=== PATIENT | male | born 1990 | race Caucasian/White ===

== ENCOUNTER 2017-01-06 15:38 | Inpatient (IN) | payer MEDICAID, OTHER ==
[2017-01-06] MEDS ORDERED: Sodium Chloride 0.9% 2.5 ML Syringe FLUSH PRN (16:16)
[2017-01-06] MEDS ORDERED: Sodium Chloride 0.9% 10 ML Syringe FLUSH PRN (16:16)
[2017-01-06] MEDS ORDERED: Sodium Chloride 0.9% 1,000 ML IV ONE (16:18)
[2017-01-06] MEDS ORDERED: Pantoprazole 40 MG Vial IVPUSH ONE (16:18)
[2017-01-06] MEDS ORDERED: Ondansetron 4 MG/2 ML SDV IVPUSH ONE (16:18)
[2017-01-06 16:57] LABS: CHLORIDE,CL 95 mmol/L (98-110); SODIUM,NA 134 mmol/L (136-146)
[2017-01-06] MEDS ORDERED: Morphine 10 MG/ML Syringe IV ONE (17:25)
[2017-01-06] MEDS ORDERED: Iopamidol 755 MG/ML 500 ML Multipack Bottle IVPUSH STA (17:53)
--- NOTE | 2017-01-06 18:05 | EDM.PDOC ---
ED HPI GENERAL MEDICAL PROBLEM - General Chief Complaint: Abdominal Pain Stated Complaint: ABDOMINAL PAIN Time Seen by Provider: 01/06/17 15:58 Source of Information: Reports: Patient History Limitations: Reports: No Limitations - History of Present Illness INITIAL COMMENTS - FREE TEXT/NARRATIVE: HISTORY AND PHYSICAL: []26-year-old male presenting with abdominal pain 3 days. Patient has history of Crohn's disease As had one abdominal surgery related to cuff and large intestine "not for a obstruction" History of Present Illness: []Patient has been sick for the last 3 days unable to have bowel movement, He is now passing some gas calling the chair Review of Systems: As per history of present illness and below otherwise all systems reviewed and negative. Past medical history: As per history of present illness and as reviewed below otherwise noncontributory. Surgical history: As per history of present illness and as reviewed below otherwise noncontributory. Social history: No reported history of drug or alcohol abuse. Family history: As per history of present illness and as reviewed below otherwise noncontributory. Physical exam: Alert oriented gentleman who is in a lot of distress initially. Answering questions appropriately. No shortness breath noted HEENT: Atraumatic, normocehpalic, pupils reactive, negative for conjunctival pallor or scleral icterus, mucous membranes moist, throat clear, neck supple, nontender, trachea midline. Lungs: Clear to auscultation, breath sounds equal bilaterally, chest non tender. Heart: S1S2, regular, negative for clicks, rubs, or JVD. Abdomen: Soft, nondistended,tender. Some guarding is noted .Negative for masses or hepatossplenmegaly. Negative for costovertebral tenderness. Pelvis: Stable nontender. Genitourinary: Deferred. Rectal: Deferred Extremities: Atraumatic, negative for cords or calf pain. Neurovascular unremarkable. Neuro: Awake, alert, oriented. Cranial nerves II through XII unremarkable. Cerebellum unremarkable. Motor and sensory unremarkable throughout. Exam nonfocal. Have discussed this case with Dr. Menendez who is in agreement for patient admission, NG tube to be inserted. Discussed case with Dr. Ho per consult and he will come in and see this patient Diagnostics: [CBC CMP amylase lipase urine urine culture CT abdomen pelvis] Therapeutics: []NG tube/ IV fluids Impression: [Small bowel obstruction] Plan: []Admission to hospital Definitive disposition and diagnosis as appropriate pending reevaluation and review of above. abdomen Pain Score (Numeric/FACES): 9 - Related Data Allergies Allergy/AdvReac Type Severity Reaction Status Date / Time No Known Allergies Allergy Verified 01/06/17 16:06 Home Meds: Home Meds Escitalopram [Lexapro] 20 mg PO DAILY 07/05/13 [History] Mesalamine [Canasa] 1,000 mg RECTAL DAILY 07/05/13 [History] buPROPion HCl [Wellbutrin SR] 150 mg PO DAILY 07/05/13 [History] Past Medical History - Past Health History Medical/Surgical History: Denies Medical/Surgical History Gastrointestinal History: Reports: Other (See Below) Other Gastrointestinal History: ulcerative colitis Social & Family History - Family History Family Medical History: Noncontributory - Tobacco Use Smoking Status *Q: Never Smoker - Recreational Drug Use Recreational Drug Use: No ED ROS GENERAL - Review of Systems Review Of Systems: ROS reveals no pertinent complaints other than HPI. ED EXAM, GI/ABD - Physical Exam Exam: See Below (See dictation) Course - Vital Signs Last Recorded V/S: Last Vital Signs Temp 37.0 C 01/06/17 15:38 Pulse 119 H 01/06/17 15:38 Resp 18 01/06/17 15:38 BP 126/78 01/06/17 15:38 Pulse Ox 96 01/06/17 15:38 - Orders/Labs/Meds Orders: Active Orders 24 hr Category Date Time Status Patient Status [ADT] Stat ADT 01/06/17 18:05 Ordered Notify Provider Consults [RC] ASDIRECTED Care 01/06/17 18:07 Ordered Consult to Physician [CONS] Stat Cons 01/06/17 18:06 Ordered Abdomen Pelvis w Cont [CT] Stat Exams 01/06/17 16:17 Taken Sodium Chloride 0.9% [Saline Flush] Med 01/06/17 16:16 Active 10 ml FLUSH ASDIRECTED PRN Sodium Chloride 0.9% [Saline Flush] Med 01/06/17 16:16 Active 2.5 ml FLUSH ASDIRECTED PRN Nasogastric Orogastric Tube Insertion [OM.PC] Stat Oth 01/06/17 18:00 Ordered Saline Lock Insert [OM.PC] Stat Oth 01/06/17 16:16 Ordered Medication Orders Sodium Chloride (Saline Flush) 10 ml FLUSH ASDIRECTED PRN PRN Reason: Keep Vein Open Last Admin: 01/06/17 17:53 Dose: 10 ml Sodium Chloride (Saline Flush) 2.5 ml FLUSH ASDIRECTED PRN PRN Reason: Keep Vein Open Last Admin: 01/06/17 17:53 Dose: 2.5 ml Labs: Laboratory Tests 01/06/17 01/06/17 01/06/17 Range/Units 16:10 16:25 16:25 WBC 3.29 L (4.0-11.0) K/uL RBC 4.91 (4.50-5.90) M/uL Hgb 14.9 (13.0-17.0) g/dL Hct 44.2 (38.0-50.0) % MCV 90.0 (80.0-98.0) fL MCH 30.3 (27.0-32.0) pg MCHC 33.7 (31.0-37.0) g/dL RDW Std Deviation 44.6 (28.0-62.0) fl RDW Coeff of Richard 14 (11.0-15.0) % Plt Count 255 (150-400) K/uL MPV 9.80 (7.40-12.00) fL Add Manual Diff YES Neutrophils % (Manual) 45 L (48.0-80.0) % Band Neutrophils % 26 % Lymphocytes % (Manual) 20 (16.0-40.0) % Monocytes % (Manual) 4 (0.0-15.0) % Eosinophils % (Manual) 2 (0.0-7.0) % Basophils % (Manual) 1 (0.0-1.5) % Metamyelocytes % 2 % Nucleated RBC % 0.0 /100WBC Absolute Seg Neuts 1.5 Band Neutrophils # 0.9 Lymphocytes # (Manual) 0.7 Monocytes # (Manual) 0.1 Eosinophils # (Manual) 0.1 Basophils # (Manual) 0 Absolute Metamyelocyte 0.1 Nucleated RBCs # 0 K/uL Sodium 134 L (136-146) mmol/L Potassium 3.9 (3.5-5.1) mmol/L Chloride 95 L (98-110) mmol/L Carbon Dioxide 28 (21-31) mmol/L BUN 26 H (6.0-23.0) mg/dL Creatinine 1.2 (0.6-1.5) mg/dL Est Cr Clr Drug Dosing TNP Estimated GFR (MDRD) > 60.0 ml/min Glucose 155 H (60-110) mg/dL Calcium 9.8 (8.8-10.8) mg/dL Total Bilirubin 0.6 (0.1-1.5) mg/dL AST 21 (5-40) IU/L ALT 18 (8-54) IU/L Alkaline Phosphatase 82 (40-150) Total Protein 8.0 (6.0-8.0) g/dL Albumin 4.3 (3.5-5.0) g/dL Globulin 3.7 H (2.0-3.5) g/dL Albumin/Globulin Ratio 1.2 L (1.3-2.8) Amylase 28 (10-90) U/L Lipase < 9 (7-80) U/L Urine Color DARK YELLOW Urine Appearance CLEAR Urine pH 5.5 (5.0-8.0) Ur Specific Trinity >= 1.030 (1.001-1.035) Urine Protein 30 (NEGATIVE) mg/dL Urine Glucose (UA) NEGATIVE (NEGATIVE) mg/dL Urine Ketones TRACE H (NEGATIVE) mg/dL Urine Occult Blood NEGATIVE (NEGATIVE) Urine Nitrite NEGATIVE (NEGATIVE) Urine Bilirubin MODERATE H (NEGATIVE) Urine Ictotest NEGATIVE Urine Urobilinogen 1.0 (<2.0) EU/dL Ur Leukocyte Esterase NEGATIVE (NEGATIVE) Urine RBC 1-2 (0-2/HPF) Urine WBC 0-1 (0-5/HPF) Ur Epithelial Cells RARE (NONE-FEW) Urine Bacteria FEW (NEGATIVE) Hyaline Casts 5-10 (0-2/LPF) Urine Mucus HEAVY (NONE-MOD) Meds: Medications Generic Name Dose Route Start Last Admin Trade Name Freq PRN Reason Stop Dose Admin Sodium Chloride 10 ml 01/06/17 16:16 01/06/17 17:53 Saline Flush FLUSH 10 ml ASDIRECTED PRN Administration Keep Vein Open Sodium Chloride 2.5 ml 01/06/17 16:16 01/06/17 17:53 Saline Flush FLUSH 2.5 ml ASDIRECTED PRN Administration Keep Vein Open Discontinued Medications Generic Name Dose Route Start Last Admin Trade Name Freq PRN Reason Stop Dose Admin Sodium Chloride 1,000 mls @ 999 mls/hr 01/06/17 16:18 01/06/17 17:29 Normal Saline IV 01/06/17 17:18 999 mls/hr STAT ONE Administration Iopamidol 100 ml 01/06/17 17:53 01/06/17 17:54 Isovue Multipack-370 (76%) IVPUSH 01/06/17 17:54 100 ml ONETIME STA Administration Morphine Sulfate 2 mg 01/06/17 17:25 01/06/17 17:52 Morphine IV 01/06/17 17:26 2 mg ONETIME ONE Administration Ondansetron HCl 4 mg 01/06/17 16:18 01/06/17 17:29 Zofran IVPUSH 01/06/17 16:19 4 mg ONETIME ONE Administration Pantoprazole Sodium 80 mg 01/06/17 16:18 01/06/17 17:28 Protonix Iv IVPUSH 01/06/17 16:19 80 mg .BOLUS ONE Administration Departure - Departure Time of Disposition: 18:05 Disposition: Admitted As Inpatient 66 Condition: Good Clinical Impression: Small bowel obstruction - Discharge Information Referrals: PCP,None [Primary Care Provider] - Forms: ED Department Discharge - My Orders Last 24 Hours: My Active Orders 01/06/17 16:16 Sodium Chloride 0.9% [Saline Flush] 10 ml FLUSH ASDIRECTED PRN Sodium Chloride 0.9% [Saline Flush] 2.5 ml FLUSH ASDIRECTED PRN Saline Lock Insert [OM.PC] Stat 01/06/17 16:17 Abdomen Pelvis w Cont [CT] Stat 01/06/17 18:00 Nasogastric Orogastric Tube Insertion [OM.PC] Stat 01/06/17 18:05 Patient Status [ADT] Stat 01/06/17 18:06 Consult to Physician [CONS] Stat 01/06/17 18:07 Notify Provider Consults [RC] ASDIRECTED - Assessment/Plan Last 24 Hours: My Active Orders 01/06/17 16:16 Sodium Chloride 0.9% [Saline Flush] 10 ml FLUSH ASDIRECTED PRN Sodium Chloride 0.9% [Saline Flush] 2.5 ml FLUSH ASDIRECTED PRN Saline Lock Insert [OM.PC] Stat 01/06/17 16:17 Abdomen Pelvis w Cont [CT] Stat 01/06/17 18:00 Nasogastric Orogastric Tube Insertion [OM.PC] Stat 01/06/17 18:05 Patient Status [ADT] Stat 01/06/17 18:06 Consult to Physician [CONS] Stat 01/06/17 18:07 Notify Provider Consults [RC] ASDIRECTED
--- NOTE | 2017-01-06 19:23 | PCM.CONS ---
H&P History of Present Illness - General Date of Service: 01/06/17 Admit Problem/Dx: Admission Diagnosis/Problem Admission Diagnosis/Problem Small bowel obstruction Source of Information: Patient History Limitations: Reports: No Limitations - History of Present Illness Initial Comments - Free Text/Narative: Patient is a 26 y/o gentleman admitted with a high grade SBO. He has a history of ulcerative colitis and underwent a total abdominal colectomy with J-pouch ileo-proctostomy and temporary ileostomy 10 years ago. This was done by Dr. Day in [place]. Patient states he underwent 3 operations in a 5-6 month period. Since then he has been troubled with intermittent small bowel obstructions. These usually resolve with conservative treatment. Symptom Onset Date: 01/04/17 Duration of Symptoms: Reports: Day(s):, Chronic, Colic, Heavy Location: Reports: Abdomen Quality: Reports: Pressure, Same as Previous Episode Severity: Severe Improves with: Reports: Rest Worsens with: Reports: Eating, Movement Context: Reports: Sick Contact Associated Symptoms: Reports: Loss of Appetite, Nausea/Vomiting. Denies: Fever/ Chills abdomen Pain Score (Numeric/FACES): 8 - Related Data Allergies/Adverse Reactions: Allergies Allergy/AdvReac Type Severity Reaction Status Date / Time No Known Allergies Allergy Verified 01/06/17 16:06 Home Medications: Home Meds Escitalopram [Lexapro] 20 mg PO DAILY 07/05/13 [History] Mesalamine [Canasa] 1,000 mg RECTAL DAILY 07/05/13 [History] buPROPion HCl [Wellbutrin SR] 150 mg PO DAILY 07/05/13 [History] Past Medical History - Past Health History Medical/Surgical History: Denies Medical/Surgical History Gastrointestinal History: Reports: Other (See Below) Other Gastrointestinal History: ulcerative colitis - Past Surgical History GI Surgical History: Reports: Other (See Below) Other GI Surgeries/Procedures: Total abdominal colectomy with J-pouch ileo- proctostomy. Diverting ileostomy which was taken down. Social & Family History - Family History Family Medical History: Noncontributory - Tobacco Use Smoking Status *Q: Never Smoker Second Hand Smoke Exposure: No - Caffeine Use Caffeine Use: Reports: Coffee, Soda, Tea - Recreational Drug Use Recreational Drug Use: No H&P Review of Systems - Review of Systems: Review Of Systems: See Below General: Denies: Fever, Chills, Diaphoresis HEENT: Reports: No Symptoms Pulmonary: Denies: Shortness of Breath, Wheezing Cardiovascular: Denies: Chest Pain, Palpitations Gastrointestinal: Reports: Abdominal Pain, Anorexia, Distension, Flatus ( starting to pass flatus today, had no flatus from 01/04-today.), Nausea, Vomiting. Denies: Black Stool, Bloody Stool, Constipation, Diarrhea, Hematemesis, Hematochezia, Melena, Stool Incontinence Genitourinary: Denies: Dysuria, Frequency, Burning Musculoskeletal: Reports: No Symptoms Skin: Denies: Cyanosis, Jaundice, Dryness, Bruising Psychiatric: Reports: Depression, Anxiety Neurological: Denies: Confusion, Dizziness, Headache Hematologic/Lymphatic: Denies: Anemia, Easy Bleeding, Easy Bruising Immunologic: Reports: No Symptoms Exam - Exam Exam: See Below - Vital Signs Vital Signs: Last Vital Signs Temp 98.6 F 01/06/17 18:40 Pulse 92 01/06/17 18:40 Resp 20 01/06/17 18:40 BP 120/78 01/06/17 18:40 Pulse Ox 97 01/06/17 18:40 Weight: 334 lb 10.587 oz - Exam Quality Assessment: No: Supplemental Oxygen General: Alert, Oriented, Cooperative, Moderate Distress HEENT: Conjunctiva Clear, EACs Clear, EOMI Neck: Supple, Trachea Midline, +2 Carotid Pulse wo Bruit. No: Carotid Bruit Lungs: Clear to Auscultation, Normal Respiratory Effort Cardiovascular: Regular Rate, Regular Rhythm, Tachycardia. No: Systolic Murmur , Diastolic Murmur GI/Abdominal Exam: Distended, Tender, Abnormal Bowel Sounds (Hyperactive). No: Guarding, Rigid, Rebound, Hernia, Mass (Male) Exam: No Hernia, Normal Inspection Rectal (Males) Exam: No: Deferred Back Exam: Normal Inspection Extremities: Normal Inspection, Normal Range of Motion. No: Eveline's Sign Peripheral Pulses: 4+: Posterior Tibial (L), Posterior Tibial (R), Dorsalis Pedis (L), Dorsalis Pedis (R) Skin: Warm, Dry, Intact Neurological: Cranial Nerves Intact Neuro Extensive - Mental Status: Alert, Oriented x3, Normal Mood/Affect Psychiatric: Alert, Normal Affect, Normal Mood - Patient Data Result Diagrams: 01/06/17 16:25 01/06/17 16:25 Consult PN Assessment/Plan (1) Chronic ulcerative colitis with intestinal obstruction SNOMED Code(s): 663218132 Code(s): K51.912 - ULCERATIVE COLITIS, UNSPECIFIED WITH INTESTINAL OBSTRUCTION Priority: High Current Visit: Yes (2) Depression with anxiety SNOMED Code(s): 781038223 Code(s): F41.8 - OTHER SPECIFIED ANXIETY DISORDERS Priority: Medium Current Visit: Yes (3) Small bowel obstruction SNOMED Code(s): 662614904 Code(s): K56.609 - UNSP INTESTNL OBST, UNSP TO PARTIAL VERSUS COMPLETE OBST Priority: High Current Visit: Yes Problem List Initiated/Reviewed/Updated: Yes Plan: Recommend trial of conservative therapy with NG decompression, IV fluid resuscitation and bowel rest. Significant bandemia in the face of neutropenia is worrisome although platelet count is 255K. Currently patient looks mildly toxic but not septic. He does state he is feeling better with the NG tube and analgesics. He states he is starting to pass gas. Given his complicated history of ulcerative colitis and the need for early total abdominal colectomy and reconstruction, he is a high risk surgical candidate that may require transfer to a larger facility. As he has had his surgery in [place] at the [facility], that would be a consideration. Will follow. Recommend repeating lab work, flat/upright abdomen in am. Thank you.
[2017-01-06] MEDS ORDERED: Morphine 2 MG/ML Syringe IVPUSH PRN (19:38)
[2017-01-06] MEDS: Ciprofloxacin in D5W 400 MG in Premix Bag 1 BAG IV SCH ×2 (19:52)
[2017-01-06] MEDS ORDERED: Ondansetron 4 MG/2 ML SDV IVPUSH PRN (20:18)
[2017-01-06] MEDS ORDERED: Phenol 1.4% Oral Spray 177 ML Bottle MUCMEM PRN (20:24)
--- NOTE | 2017-01-06 20:26 | PCM.HP ---
H&P History of Present Illness - General Admit Problem/Dx: Admission Diagnosis/Problem Admission Diagnosis/Problem Small bowel obstruction - History of Present Illness Initial Comments - Free Text/Narative: 26 yo male with pmh of ulcerative colitis s/p total colectomy ten years ago. He has had intermitent episodes of bowel obstructions since then that have been treated conservatively. He presents with three day history of abdominal pain. CT scan of abdomen today shows high-grade small bowel obstruction with suspect transition point in the right lower quadrant. Patient reports he has been passing gas. He denies any fevers. abdomen Pain Score (Numeric/FACES): 8 - Related Data Allergies/Adverse Reactions: Allergies Allergy/AdvReac Type Severity Reaction Status Date / Time No Known Allergies Allergy Verified 01/06/17 16:06 Home Medications: Home Meds ALPRAZolam [Alprazolam] 1 mg PO TID PRN 01/07/17 [History] Dextroamphetamine/Amphetamine [Adderall] 01/07/17 [History] Past Medical History - Past Health History Medical/Surgical History: Denies Medical/Surgical History Gastrointestinal History: Reports: Other (See Below) Other Gastrointestinal History: ulcerative colitis - Past Surgical History GI Surgical History: Reports: Other (See Below) Other GI Surgeries/Procedures: Total abdominal colectomy with J-pouch ileo- proctostomy. Diverting ileostomy which was taken down. Social & Family History - Family History Family Medical History: Noncontributory - Tobacco Use Smoking Status *Q: Never Smoker Second Hand Smoke Exposure: No - Caffeine Use Caffeine Use: Reports: Coffee, Soda, Tea - Recreational Drug Use Recreational Drug Use: No H&P Review of Systems - Review of Systems: Review Of Systems: ROS reveals no pertinent complaints other than HPI. Exam - Exam Exam: See Below - Vital Signs Vital Signs: Last Vital Signs Temp 37.0 C 01/06/17 18:40 Pulse 92 01/06/17 18:40 Resp 20 01/06/17 18:40 BP 120/78 01/06/17 18:40 Pulse Ox 97 01/06/17 18:40 Weight: 68.855 kg - Exam General: Alert, Oriented, 4 Neck: Supple, Trachea Midline, 2 Lungs: Clear to Auscultation, Normal Respiratory Effort Cardiovascular: Regular Rate, Regular Rhythm GI/Abdominal Exam: No Distention, Tender (in all four quadrants). No: Guarding , Rigid Extremities: Normal Inspection, No Pedal Edema Skin: Warm, Dry, Intact - Patient Data Result Diagrams: 01/07/17 04:54 01/07/17 04:54 *Q Meaningful Use (ADM) - VTE *Q VTE Criteria *Q: - Stroke *Q Stroke Criteria *Q: - AMI *Q AMI Criteria *Q: Problem List Initiated/Reviewed/Updated: Yes Orders Last 24hrs: Active Orders 24 hr Category Date Time Status Antiembolic Devices [RC] PER UNIT ROUTINE Care 01/06/17 20:19 Ordered Communication Order [RC] ROUTINE Care 01/06/17 19:36 Active Intake and Output [RC] QSHIFT Care 01/06/17 20:19 Ordered Nasogastric Tube Management [Gastrointestinal Tube Mgmt Care 01/06/17 18:57 Active ] [RC] ASDIRECTED Notify Provider Consults [RC] ASDIRECTED Care 01/06/17 18:07 Active Oxygen Therapy [RC] PRN Care 01/06/17 20:18 Ordered VTE/DVT Education [RC] PER UNIT ROUTINE Care 01/06/17 20:18 Ordered Vital Signs [RC] Q4H Care 01/06/17 20:18 Ordered Consult to Physician [CONS] Stat Cons 01/06/17 18:06 Active Abdomen 1V Upright [CR] Routine Exams 01/06/17 18:58 Ordered Abdomen 2V AP Flat Upright [CR] DAILY Exams 01/07/17 07:00 Ordered BASIC METABOLIC PANEL,BMP [CHEM] AM Lab 01/07/17 05:11 Ordered CBC WITH MANUAL DIFF [HEME] AM Lab 01/07/17 05:11 Ordered Ciprofloxacin in D5W [Cipro in D5W 400 MG/200 ML] 400 Med 01/06/17 19:00 Active mg Premix Bag 1 bag IV Q12H HYDROmorphone [Dilaudid] Med 01/06/17 20:18 Ordered 1 mg IVPUSH Q2H PRN Ondansetron [Zofran] Med 01/06/17 20:18 Ordered 4 mg IVPUSH Q4H PRN Sodium Chloride 0.9% @ 125 MLS/HR (1000ml) Med 01/06/17 20:30 Ordered Sodium Chloride 0.9% [Normal Saline] 1,000 ml IV ASDIRECTED metroNIDAZOLE/Normal Saline [Flagyl 500 MG in NS 100 ML Med 01/06/17 20:00 Active ] 500 mg Premix Bag 1 bag IV Q8H Sequential Compression Device [OM.PC] Per Unit Routine Oth 01/06/17 20:19 Ordered Resuscitation Status Routine Resus Stat 01/06/17 20:18 Ordered Medication Orders Hydromorphone HCl (Dilaudid) 1 mg IVPUSH Q2H PRN PRN Reason: Pain (severe 7-10) Ciprofloxacin/Dextrose 400 mg/ (Premix) 200 mls @ 200 mls/hr IV Q12H DEEPTHI Last Admin: 01/06/17 19:52 Dose: 200 mls/hr Metronidazole 500 mg/ Premix 100 mls @ 100 mls/hr IV Q8H DEEPTHI Sodium Chloride (Normal Saline) 1,000 mls @ 125 mls/hr IV ASDIRECTED DEEPTHI Ondansetron HCl (Zofran) 4 mg IVPUSH Q4H PRN PRN Reason: Nausea Sodium Chloride (Saline Flush) 10 ml FLUSH ASDIRECTED PRN PRN Reason: Keep Vein Open Last Admin: 01/06/17 17:53 Dose: 10 ml Sodium Chloride (Saline Flush) 2.5 ml FLUSH ASDIRECTED PRN PRN Reason: Keep Vein Open Last Admin: 01/06/17 17:53 Dose: 2.5 ml Assessment/Plan Comment:: 26 yo male admitted with small bowel obstruction. Dr. Ho has been consulted. We will treat with IV fluids, bowel rest, NG tube, ciprofloxain and flagyl.
[2017-01-06] MEDS: metroNIDAZOLE/Normal Saline 500 MG in Premix Bag 1 BAG IV SCH (21:26)
[2017-01-06] MEDS: Sodium Chloride 0.9% 1,000 ML IV SCH (21:27)
[2017-01-06] MEDS: HYDROmorphone 1 MG/ML Syringe IV PRN (21:50)
[2017-01-07] MEDS: HYDROmorphone 1 MG/ML Syringe IV PRN ×4 (00:11→09:03)
[2017-01-07] MEDS: metroNIDAZOLE/Normal Saline 500 MG in Premix Bag 1 BAG IV SCH ×3 (03:56→20:13)
[2017-01-07 05:30] LABS: CHLORIDE,CL 102 mmol/L (98-110); SODIUM,NA 137 mmol/L (136-146)
[2017-01-07] MEDS: Ciprofloxacin in D5W 400 MG in Premix Bag 1 BAG IV SCH ×4 (06:27→18:02)
[2017-01-07] MEDS ORDERED: HYDROmorphone 2 MG/ML Syringe IVPUSH ONE (08:34)
--- NOTE | 2017-01-07 08:35 | PCM.PN ---
- General Info Date of Service: 01/07/17 Admission Dx/Problem (Free Text): Admission Diagnosis/Problem Admission Diagnosis/Problem Small bowel obstruction Subjective Update: Feeling slightly better this morning, still having pain. Had loose BM this morning and is passing some gas. No chest pain or SOB. Functional Status: Reports: Ambulating, Urinating. Denies: Pain Controlled - Review of Systems General: Reports: No Symptoms. Denies: Fever Pulmonary: Reports: No Symptoms. Denies: Shortness of Breath Cardiovascular: Reports: No Symptoms. Denies: Chest Pain Gastrointestinal: Reports: Abdominal Pain, Diarrhea, Flatus. Denies: Melena, Nausea, Vomiting Neurological: Reports: No Symptoms Psychiatric: Reports: No Symptoms - Patient Data Vitals - Most Recent: Last Vital Signs Temp 97.8 F 01/07/17 08:00 Pulse 77 01/07/17 08:00 Resp 20 01/07/17 08:00 BP 113/76 01/07/17 08:00 Pulse Ox 95 01/07/17 08:00 Weight - Most Recent: 67.631 kg I&O - Last 24 Hours: Intake & Output 01/06/17 01/07/17 01/07/17 22:59 06:59 14:59 Intake Total 300 115 Output Total 580 Balance 300 -465 Lab Results Last 24 Hours: Laboratory Results - last 24 hr 01/07/17 01/07/17 Range/Units 04:54 04:54 WBC 5.01 (4.0-11.0) K/uL RBC 4.47 L (4.50-5.90) M/uL Hgb 13.3 (13.0-17.0) g/dL Hct 40.9 (38.0-50.0) % MCV 91.5 (80.0-98.0) fL MCH 29.8 (27.0-32.0) pg MCHC 32.5 (31.0-37.0) g/dL RDW Std Deviation 44.6 (28.0-62.0) fl RDW Coeff of Richard 14 (11.0-15.0) % Plt Count 246 (150-400) K/uL MPV 9.90 (7.40-12.00) fL Neutrophils % (Manual) 38 L (48.0-80.0) % Band Neutrophils % 17 % Lymphocytes % (Manual) 25 (16.0-40.0) % Monocytes % (Manual) 12 (0.0-15.0) % Eosinophils % (Manual) 8 H (0.0-7.0) % Nucleated RBC % 0.0 /100WBC Absolute Seg Neuts 1.9 Band Neutrophils # 0.9 Lymphocytes # (Manual) 1.3 Monocytes # (Manual) 0.6 Eosinophils # (Manual) 0.4 Sodium 137 (136-146) mmol/L Potassium 4.1 (3.5-5.1) mmol/L Chloride 102 (98-110) mmol/L Carbon Dioxide 27 (21-31) mmol/L BUN 17 (6.0-23.0) mg/dL Creatinine 0.9 (0.6-1.5) mg/dL Est Cr Clr Drug Dosing 118.98 mL/min Estimated GFR (MDRD) > 60.0 ml/min Glucose 106 (60-110) mg/dL Calcium 8.6 L (8.8-10.8) mg/dL Med Orders - Current: Current Medications Hydromorphone HCl (Dilaudid) 1 mg IV Q2H PRN PRN Reason: Pain (severe 7-10) Last Admin: 01/07/17 07:03 Dose: 1 mg Ciprofloxacin/Dextrose 400 mg/ (Premix) 200 mls @ 200 mls/hr IV Q12H [facility] Last Admin: 01/07/17 06:27 Dose: 200 mls/hr Metronidazole 500 mg/ Premix 100 mls @ 100 mls/hr IV Q8H [facility] Last Admin: 01/07/17 03:56 Dose: 100 mls/hr Sodium Chloride (Normal Saline) 1,000 mls @ 125 mls/hr IV ASDIRECTED [facility] Last Admin: 01/06/17 21:27 Dose: 125 mls/hr Ondansetron HCl (Zofran) 4 mg IVPUSH Q4H PRN PRN Reason: Nausea Phenol/Menthol (Chloraseptic Throat [place]) 0 ml MUCMEM Q2H PRN PRN Reason: Sore Throat Last Admin: 01/06/17 21:48 Dose: 1 spray Sodium Chloride (Saline Flush) 10 ml FLUSH ASDIRECTED PRN PRN Reason: Keep Vein Open Last Admin: 01/06/17 17:53 Dose: 10 ml Sodium Chloride (Saline Flush) 2.5 ml FLUSH ASDIRECTED PRN PRN Reason: Keep Vein Open Last Admin: 01/06/17 17:53 Dose: 2.5 ml Discontinued Medications Sodium Chloride (Normal Saline) 1,000 mls @ 999 mls/hr IV STAT ONE Stop: 01/06/17 17:18 Last Admin: 01/06/17 17:29 Dose: 999 mls/hr Iopamidol (Isovue Multipack-370 (76%)) 100 ml IVPUSH ONETIME STA Stop: 01/06/17 17:54 Last Admin: 01/06/17 17:54 Dose: 100 ml Morphine Sulfate (Morphine) 2 mg IV ONETIME ONE Stop: 01/06/17 17:26 Last Admin: 01/06/17 17:52 Dose: 2 mg Morphine Sulfate (Morphine) 2 mg IVPUSH Q2H PRN PRN Reason: Pain Last Admin: 01/06/17 19:50 Dose: 2 mg Ondansetron HCl (Zofran) 4 mg IVPUSH ONETIME ONE Stop: 01/06/17 16:19 Last Admin: 01/06/17 17:29 Dose: 4 mg Pantoprazole Sodium (Protonix Iv) 80 mg IVPUSH .BOLUS ONE Stop: 01/06/17 16:19 Last Admin: 01/06/17 17:28 Dose: 80 mg - Exam General: Alert, Oriented, Cooperative, No Acute Distress HEENT: Other (NG tube in place.) Neck: Supple Lungs: Clear to Auscultation, Normal Respiratory Effort Cardiovascular: Regular Rate, Regular Rhythm GI/Abdominal Exam: Soft, Tender (diffuse, all quadrants.), Abnormal Bowel Sounds (slighty hypoactive.). No: Distended, Guarding, Rigid Extremities: Normal Inspection, Normal Range of Motion, Non-Tender, No Pedal Edema, Normal Capillary Refill Neurological: No New Focal Deficit Psy/Mental Status: Alert, Normal Affect, Normal Mood - Problem List & Annotations (1) Chronic ulcerative colitis with intestinal obstruction SNOMED Code(s): 243451919 Code(s): K51.912 - ULCERATIVE COLITIS, UNSPECIFIED WITH INTESTINAL OBSTRUCTION Status: Acute Priority: High Current Visit: Yes - Problem List Review Problem List Initiated/Reviewed/Updated: Yes - My Orders Last 24 Hours: My Active Orders 01/07/17 08:34 HYDROmorphone [Dilaudid] 0.5 mg IVPUSH ONETIME ONE - Plan Plan:: 26 yo male admitted with small bowel obstruction. 1 Small bowel obstruction: Hx of chronic ulcerative colitis who had total abdominal colectomy with J-pouch ileo-proctostomy and temporary ileostomy [address] Ho has been consulted. Some improvement in pain today, passing gas and had loose BM this morning. Bandemia improving. Continue IV fluids, bowel rest, NG tube, Ciprofloxacin and Flagyl. Abdominal xray this am diffuse gaseous distention of small bowel continues, up to 6 cm, relatively stable compared to prior study yesterday. No free air. Continue conservative management per Dr. Ho. NG had 30 ml output overnight. VTE prophylaxis: SCDs Dispo: pending improvement, 3 days
[2017-01-07] MEDS: Sodium Chloride 0.9% 1,000 ML IV SCH (08:51)
--- NOTE | 2017-01-07 10:23 | CR ---
EXAM DATE: 01/06/17 PATIENT'S AGE: 26 Patient: ENID VALDES Facility: [place], [place] Site . Site : 1990 Study: XRay Abdomen [id number]/2/2017 10:48:49 PM Ordering Physician: Shon Martin Final Report: HISTORY: NG placement. FINDINGS: A single radiograph of the lower chest and upper abdomen demonstrates a NG tube with the tip in the upper stomach. There are surgical clips in the upper abdomen. Distended small bowel loops are present. No free air under the diaphragm. Lung bases are free of infiltrates. IMPRESSION: NG tube with the tip in the upper stomach. Dictated by Sarah Simmons MD @ 01/06/2017 11:14:07 PM Dictated by: Sarah Simmons MD @ 01/06/2017 23:14:12 (Electronic Signature) Report Signed by Proxy. [email or web address]
--- NOTE | 2017-01-07 10:25 | CT ---
EXAM DATE: 01/06/17 PATIENT'S AGE: 26 Patient: ENID VALDES Facility: [place], [place] Site . Site : 1990 Study: CT Abdomen/Pelvis [id number]/2/2017 5:31:24 PM Ordering Physician: Doctor Cho Final Report: INDICATION: Abdominal pain TECHNIQUE: CT abdomen and pelvis acquired with i.v. contrast. Coronal and sagittal reformats were obtained. COMPARISON: 07/03/2013 FINDINGS: Lower chest: Unremarkable. Liver: Unremarkable. Spleen: Unremarkable. Pancreas: Unremarkable. Gallbladder and bile ducts: Unremarkable. Kidneys: Unremarkable. No kidney or ureteral stones and no hydronephrosis seen. Adrenal glands: Unremarkable. GI tract: Fluid-filled and dilated small bowel loops are present measuring up to 5.6 cm with a suspected transition point in the right lower quadrant on image 101. Decompressed small bowel loops is seen in the right lower quadrant with bowel wall thickening. The patient is status post a colectomy with a bowel loop resembles a J pouch within the pelvis. Vascular: Unremarkable. Lymph nodes: Unremarkable. Miscellaneous: Unremarkable. No pneumoperitoneum is seen. No significant ascites is noted. Pelvic Organs: Unremarkable. Bones: Unremarkable for age. IMPRESSION: 1. High-grade small bowel obstruction present with suspected transition point in the right lower quadrant, similar to prior examination. This may be due to abdominal adhesions or internal hernia. 2. Decompressed small bowel loops is seen in the right lower quadrant with bowel wall thickening. This is a nonspecific finding and continued imaging surveillance is recommended. Dictated by Seferino Traore MD @ 01/06/2017 5:51:01 PM Dictated by: Seferino Traore MD @ 01/06/2017 17:51:06 (Electronic Signature) Report Signed by Proxy. LOTUS
[2017-01-07] MEDS: HYDROmorphone 2 MG/ML Syringe IV PRN ×5 (11:17→23:34)
--- NOTE | 2017-01-07 11:33 | CR ---
EXAM DATE: 01/06/17 PATIENT'S AGE: 26 Patient: ENID VALDES Facility: [place], [place] : 1990 Study: XRay Abdomen [id number]/3/2017 10:53:17 AM Ordering Physician: ALISIA Final Report: INDICATION: Followup obstruction. TECHNIQUE: Supine and upright views of the abdomen and pelvis obtained at 0640 hours. COMPARISON: 01/06/2017 at 2230 hours. IMPRESSION: Nasogastric tube is again noted with the tip in the body of the stomach. The distal side port is located near the expected GE junction. Consider advancing. There is diffuse gaseous distention of small bowel which measures up to 6 cm. The degree of distention is relatively stable compared to the prior study. Findings are consistent with a distal small bowel obstruction. Surgical clips are again seen scattered throughout the abdomen and in the lower pelvis. No free air is identified. Dictated by Nilson Willett MD @ 01/07/2017 11:18:17 AM Dictated by: Nilson Willett MD @ 01/07/2017 11:18:26 (Electronic Signature) Report Signed by Proxy. LOTUS
--- NOTE | 2017-01-07 11:36 | PCM.CONSN ---
- General Info Date of Service: 01/07/17 Admission Dx/Problem (Free Text): Admission Diagnosis/Problem Admission Diagnosis/Problem Small bowel obstruction Subjective Update: Patient states he is feeling better today. Thinks his pain is about 25% improved from admission. Continues to pass gas. Did have a loose bowel movement today. States he feels like his abdomen is still bloated but overall he is more comfortable. Functional Status: Reports: Pain Controlled, Ambulating, Urinating. Denies: New Symptoms Pain Score: 8 - Review of Systems General: Denies: Fever, Chills HEENT: Reports: No Symptoms Pulmonary: Denies: Shortness of Breath, Wheezing Cardiovascular: Denies: Chest Pain Gastrointestinal: Reports: Abdominal Pain, Diarrhea, Flatus. Denies: Constipation, Nausea, Vomiting Genitourinary: Reports: No Symptoms Musculoskeletal: Reports: No Symptoms Skin: Reports: No Symptoms Neurological: Reports: No Symptoms Psychiatric: Reports: No Symptoms - Patient Data Vitals - Most Recent: Last Vital Signs Temp 97.8 F 01/07/17 08:00 Pulse 77 01/07/17 08:00 Resp 20 01/07/17 08:00 BP 113/76 01/07/17 08:00 Pulse Ox 95 01/07/17 08:00 Weight - Most Recent: 149 lb 1.6 oz I&O - Last 24 Hours: Intake & Output 01/06/17 01/07/17 01/07/17 19:59 03:59 11:59 Intake Total 300 115 Output Total 580 Balance 300 -465 Lab Results Last 24 Hours: Laboratory Results - last 24 hr 01/07/17 01/07/17 Range/Units 04:54 04:54 WBC 5.01 (4.0-11.0) K/uL RBC 4.47 L (4.50-5.90) M/uL Hgb 13.3 (13.0-17.0) g/dL Hct 40.9 (38.0-50.0) % MCV 91.5 (80.0-98.0) fL MCH 29.8 (27.0-32.0) pg MCHC 32.5 (31.0-37.0) g/dL RDW Std Deviation 44.6 (28.0-62.0) fl RDW Coeff of Richard 14 (11.0-15.0) % Plt Count 246 (150-400) K/uL MPV 9.90 (7.40-12.00) fL Neutrophils % (Manual) 38 L (48.0-80.0) % Band Neutrophils % 17 % Lymphocytes % (Manual) 25 (16.0-40.0) % Monocytes % (Manual) 12 (0.0-15.0) % Eosinophils % (Manual) 8 H (0.0-7.0) % Nucleated RBC % 0.0 /100WBC Absolute Seg Neuts 1.9 Band Neutrophils # 0.9 Lymphocytes # (Manual) 1.3 Monocytes # (Manual) 0.6 Eosinophils # (Manual) 0.4 Sodium 137 (136-146) mmol/L Potassium 4.1 (3.5-5.1) mmol/L Chloride 102 (98-110) mmol/L Carbon Dioxide 27 (21-31) mmol/L BUN 17 (6.0-23.0) mg/dL Creatinine 0.9 (0.6-1.5) mg/dL Est Cr Clr Drug Dosing 118.98 mL/min Estimated GFR (MDRD) > 60.0 ml/min Glucose 106 (60-110) mg/dL Calcium 8.6 L (8.8-10.8) mg/dL Med Orders - Current: Current Medications Hydromorphone HCl (Dilaudid) 1.5 mg IV Q2H PRN PRN Reason: Pain (severe 7-10) Last Admin: 01/07/17 11:17 Dose: 1.5 mg Ciprofloxacin/Dextrose 400 mg/ (Premix) 200 mls @ 200 mls/hr IV Q12H [facility] Last Admin: 01/07/17 06:27 Dose: 200 mls/hr Metronidazole 500 mg/ Premix 100 mls @ 100 mls/hr IV Q8H [facility] Last Admin: 01/07/17 11:19 Dose: 100 mls/hr Sodium Chloride (Normal Saline) 1,000 mls @ 125 mls/hr IV ASDIRECTED [facility] Last Admin: 01/07/17 08:51 Dose: 125 mls/hr Ondansetron HCl (Zofran) 4 mg IVPUSH Q4H PRN PRN Reason: Nausea Phenol/Menthol (Chloraseptic Throat [place]) 0 ml MUCMEM Q2H PRN PRN Reason: Sore Throat Last Admin: 01/06/17 21:48 Dose: 1 spray Sodium Chloride (Saline Flush) 10 ml FLUSH ASDIRECTED PRN PRN Reason: Keep Vein Open Last Admin: 01/06/17 17:53 Dose: 10 ml Sodium Chloride (Saline Flush) 2.5 ml FLUSH ASDIRECTED PRN PRN Reason: Keep Vein Open Last Admin: 01/06/17 17:53 Dose: 2.5 ml Discontinued Medications Hydromorphone HCl (Dilaudid) 1 mg IV Q2H PRN PRN Reason: Pain (severe 7-10) Last Admin: 01/07/17 09:03 Dose: 1 mg Hydromorphone HCl (Dilaudid) 0.5 mg IVPUSH ONETIME ONE Stop: 01/07/17 08:35 Last Admin: 01/07/17 08:45 Dose: 0.5 mg Sodium Chloride (Normal Saline) 1,000 mls @ 999 mls/hr IV STAT ONE Stop: 01/06/17 17:18 Last Admin: 01/06/17 17:29 Dose: 999 mls/hr Iopamidol (Isovue Multipack-370 (76%)) 100 ml IVPUSH ONETIME STA Stop: 01/06/17 17:54 Last Admin: 01/06/17 17:54 Dose: 100 ml Morphine Sulfate (Morphine) 2 mg IV ONETIME ONE Stop: 01/06/17 17:26 Last Admin: 01/06/17 17:52 Dose: 2 mg Morphine Sulfate (Morphine) 2 mg IVPUSH Q2H PRN PRN Reason: Pain Last Admin: 01/06/17 19:50 Dose: 2 mg Ondansetron HCl (Zofran) 4 mg IVPUSH ONETIME ONE Stop: 01/06/17 16:19 Last Admin: 01/06/17 17:29 Dose: 4 mg Pantoprazole Sodium (Protonix Iv) 80 mg IVPUSH .BOLUS ONE Stop: 01/06/17 16:19 Last Admin: 01/06/17 17:28 Dose: 80 mg - Exam General: Alert, Oriented, Cooperative, Mild Distress HEENT: Pupils Equal, Pupils Reactive. No: Scleral Icterus Neck: Supple Lungs: Clear to Auscultation, Normal Respiratory Effort Cardiovascular: Regular Rate, Regular Rhythm. No: Tachycardia GI/Abdominal Exam: Soft, Distended, Tender, Abnormal Bowel Sounds (Hyperactive) . No: Guarding, Rigid, Rebound, Hernia (Male) Exam: No Hernia Back Exam: Normal Inspection Extremities: Normal Inspection Peripheral Pulses: 4+: Posterior Tibial (L), Posterior Tibial (R), Dorsalis Pedis (L), Dorsalis Pedis (R) Skin: Warm, Dry, Intact Wound/Incisions: Healing Well Neurological: No New Focal Deficit Psy/Mental Status: Alert, Normal Affect, Normal Mood Consult PN Assessment/Plan (1) Chronic ulcerative colitis with intestinal obstruction SNOMED Code(s): 693036024 Code(s): K51.912 - ULCERATIVE COLITIS, UNSPECIFIED WITH INTESTINAL OBSTRUCTION Priority: High Current Visit: Yes (2) Depression with anxiety SNOMED Code(s): 285905695 Code(s): F41.8 - OTHER SPECIFIED ANXIETY DISORDERS Priority: Medium Current Visit: Yes (3) Small bowel obstruction SNOMED Code(s): 218930330 Code(s): K56.609 - UNSP INTESTNL OBST, UNSP TO PARTIAL VERSUS COMPLETE OBST Priority: High Current Visit: Yes Problem List Initiated/Reviewed/Updated: Yes My Orders Last 24 Hours: My Active Orders 01/06/17 19:36 Communication Order [RC] ROUTINE 01/07/17 06:40 Abdomen 2V AP Flat Upright [CR] Routine Plan: Continued conservative therapy.
[2017-01-08] MEDS: HYDROmorphone 2 MG/ML Syringe IV PRN ×4 (02:09→08:40)
[2017-01-08] MEDS: metroNIDAZOLE/Normal Saline 500 MG in Premix Bag 1 BAG IV SCH ×2 (03:54→11:13)
[2017-01-08] MEDS: Sodium Chloride 0.9% 1,000 ML IV SCH (04:29)
[2017-01-08 05:29] LABS: CHLORIDE,CL 106 mmol/L (98-110); SODIUM,NA 140 mmol/L (136-146)
[2017-01-08] MEDS: Ciprofloxacin in D5W 400 MG in Premix Bag 1 BAG IV SCH ×2 (06:46)
--- NOTE | 2017-01-08 08:03 | PCM.PN ---
- General Info Date of Service: 01/08/17 Admission Dx/Problem (Free Text): Admission Diagnosis/Problem Admission Diagnosis/Problem Small bowel obstruction Subjective Update: Improving today. Feels less bloated and pain is improving as well. Continues to pass gas and had BM last evening. No SOB or chest pain Functional Status: Reports: Pain Controlled, Ambulating, Urinating - Review of Systems General: Reports: No Symptoms. Denies: Fever Pulmonary: Reports: No Symptoms. Denies: Shortness of Breath Cardiovascular: Reports: No Symptoms. Denies: Chest Pain Gastrointestinal: Reports: Abdominal Pain, Diarrhea, Flatus. Denies: Nausea, Vomiting Genitourinary: Reports: No Symptoms. Denies: Dysuria, Frequency, Burning - Patient Data Vitals - Most Recent: Last Vital Signs Temp 97.8 F 01/08/17 04:00 Pulse 73 01/08/17 04:00 Resp 14 01/08/17 04:00 BP 112/60 01/08/17 04:00 Pulse Ox 96 01/08/17 04:00 Weight - Most Recent: 67.631 kg I&O - Last 24 Hours: Intake & Output 01/07/17 01/08/17 01/08/17 22:59 06:59 14:59 Intake Total 1460 1959 Output Total 690 Balance 770 1959 Lab Results Last 24 Hours: Laboratory Results - last 24 hr 01/08/17 01/08/17 Range/Units 04:48 04:48 WBC 3.80 L (4.0-11.0) K/uL RBC 3.99 L (4.50-5.90) M/uL Hgb 11.8 L (13.0-17.0) g/dL Hct 37.3 L (38.0-50.0) % MCV 93.5 (80.0-98.0) fL MCH 29.6 (27.0-32.0) pg MCHC 31.6 (31.0-37.0) g/dL RDW Std Deviation 44.9 (28.0-62.0) fl RDW Coeff of Richard 13 (11.0-15.0) % Plt Count 197 (150-400) K/uL MPV 9.60 (7.40-12.00) fL Neut % (Auto) 52.0 (48.0-80.0) % Lymph % (Auto) 31.1 (16.0-40.0) % Cook % (Auto) 10.3 (0.0-15.0) % Eos % (Auto) 6.3 (0.0-7.0) % Baso % (Auto) 0.3 (0.0-1.5) % Neut # (Auto) 2.0 (1.4-5.7) K/uL Lymph # (Auto) 1.2 (0.6-2.4) K/uL [place] # (Auto) 0.4 (0.0-0.8) K/uL Eos # (Auto) 0.2 (0.0-0.7) K/uL Baso # (Auto) 0.0 (0.0-0.1) K/uL Nucleated RBC % 0.0 /100WBC Nucleated RBCs # 0 K/uL Sodium 140 (136-146) mmol/L Potassium 3.9 (3.5-5.1) mmol/L Chloride 106 (98-110) mmol/L Carbon Dioxide 27 (21-31) mmol/L BUN 11 (6.0-23.0) mg/dL Creatinine 0.8 (0.6-1.5) mg/dL Est Cr Clr Drug Dosing 133.85 mL/min Estimated GFR (MDRD) > 60.0 ml/min Glucose 77 (60-110) mg/dL Calcium 8.3 L (8.8-10.8) mg/dL Med Orders - Current: Current Medications Hydromorphone HCl (Dilaudid) 1.5 mg IV Q2H PRN PRN Reason: Pain (severe 7-10) Last Admin: 01/08/17 06:45 Dose: 1.5 mg Ciprofloxacin/Dextrose 400 mg/ (Premix) 200 mls @ 200 mls/hr IV Q12H [facility] Last Admin: 01/08/17 06:46 Dose: 200 mls/hr Metronidazole 500 mg/ Premix 100 mls @ 100 mls/hr IV Q8H [facility] Last Admin: 01/08/17 03:54 Dose: 100 mls/hr Sodium Chloride (Normal Saline) 1,000 mls @ 125 mls/hr IV ASDIRECTED [facility] Last Admin: 01/08/17 04:29 Dose: 125 mls/hr Ondansetron HCl (Zofran) 4 mg IVPUSH Q4H PRN PRN Reason: Nausea Phenol/Menthol (Chloraseptic Throat [place]) 0 ml MUCMEM Q2H PRN PRN Reason: Sore Throat Last Admin: 01/06/17 21:48 Dose: 1 spray Sodium Chloride (Saline Flush) 10 ml FLUSH ASDIRECTED PRN PRN Reason: Keep Vein Open Last Admin: 01/06/17 17:53 Dose: 10 ml Sodium Chloride (Saline Flush) 2.5 ml FLUSH ASDIRECTED PRN PRN Reason: Keep Vein Open Last Admin: 01/06/17 17:53 Dose: 2.5 ml Discontinued Medications Hydromorphone HCl (Dilaudid) 1 mg IV Q2H PRN PRN Reason: Pain (severe 7-10) Last Admin: 01/07/17 09:03 Dose: 1 mg Hydromorphone HCl (Dilaudid) 0.5 mg IVPUSH ONETIME ONE Stop: 01/07/17 08:35 Last Admin: 01/07/17 08:45 Dose: 0.5 mg Sodium Chloride (Normal Saline) 1,000 mls @ 999 mls/hr IV STAT ONE Stop: 01/06/17 17:18 Last Admin: 01/06/17 17:29 Dose: 999 mls/hr Iopamidol (Isovue Multipack-370 (76%)) 100 ml IVPUSH ONETIME STA Stop: 01/06/17 17:54 Last Admin: 01/06/17 17:54 Dose: 100 ml Morphine Sulfate (Morphine) 2 mg IV ONETIME ONE Stop: 01/06/17 17:26 Last Admin: 01/06/17 17:52 Dose: 2 mg Morphine Sulfate (Morphine) 2 mg IVPUSH Q2H PRN PRN Reason: Pain Last Admin: 01/06/17 19:50 Dose: 2 mg Ondansetron HCl (Zofran) 4 mg IVPUSH ONETIME ONE Stop: 01/06/17 16:19 Last Admin: 01/06/17 17:29 Dose: 4 mg Pantoprazole Sodium (Protonix Iv) 80 mg IVPUSH .BOLUS ONE Stop: 01/06/17 16:19 Last Admin: 01/06/17 17:28 Dose: 80 mg - Exam General: Alert, Oriented, Cooperative, No Acute Distress Lungs: Clear to Auscultation, Normal Respiratory Effort Cardiovascular: Regular Rate, Regular Rhythm GI/Abdominal Exam: Normal Bowel Sounds, Soft, Distended (less distended than yesterday), Tender (R quadrant, improving) Extremities: Normal Inspection, Normal Range of Motion, Non-Tender, No Pedal Edema, Normal Capillary Refill Psy/Mental Status: Alert, Normal Affect, Normal Mood - Problem List & Annotations (1) Chronic ulcerative colitis with intestinal obstruction SNOMED Code(s): 257920088 Code(s): K51.912 - ULCERATIVE COLITIS, UNSPECIFIED WITH INTESTINAL OBSTRUCTION Status: Acute Priority: High Current Visit: Yes - Problem List Review Problem List Initiated/Reviewed/Updated: Yes - My Orders Last 24 Hours: My Active Orders 01/07/17 10:58 HYDROmorphone [Dilaudid] 1.5 mg IV Q2H PRN 01/08/17 06:30 Abdomen 2V AP Flat Upright [CR] Timed - Plan Plan:: 26 yo male admitted with small bowel obstruction. 1 Small bowel obstruction: Hx of chronic ulcerative colitis who had total abdominal colectomy with J-pouch ileo-proctostomy and temporary ileostomy [address] Ho has been consulted. Continues to improve today, passing gas and had loose BM Continue IV fluids. In consultation with Dr. Ho, will remove NG tube start CL diet and PO analgesics. Continue Ciprofloxacin and Flagyl. Abdominal xray shows improving small bowel obstruction . No free air. If he does ok, and pain tolerable with PO pain meds, will discharge home this evening. Otherwise will monitor overnight. VTE prophylaxis: SCDs Dispo: pending improvement, 1-2 days
--- NOTE | 2017-01-08 09:07 | PCM.CONSN ---
- General Info Date of Service: 01/08/17 Admission Dx/Problem (Free Text): Admission Diagnosis/Problem Admission Diagnosis/Problem Small bowel obstruction Subjective Update: Patient is feeling better today. He still has abdominal pain, but feels he is much improved. He continues to pass gas and had another liquid stool last night. He feels his abdomen is less bloated. Functional Status: Reports: Pain Controlled, Ambulating, Urinating. Denies: New Symptoms - Review of Systems General: Denies: Fever, Weakness, Fatigue, Chills HEENT: Reports: No Symptoms Pulmonary: Denies: Shortness of Breath Cardiovascular: Denies: Chest Pain Gastrointestinal: Reports: Abdominal Pain, Diarrhea, Flatus. Denies: Nausea, Vomiting Genitourinary: Reports: No Symptoms Musculoskeletal: Reports: No Symptoms Skin: Reports: No Symptoms Neurological: Reports: No Symptoms Psychiatric: Reports: No Symptoms - Patient Data Vitals - Most Recent: Last Vital Signs Temp 98.5 F 01/08/17 08:00 Pulse 68 01/08/17 08:00 Resp 18 01/08/17 08:00 BP 122/81 01/08/17 08:00 Pulse Ox 95 01/08/17 08:00 Weight - Most Recent: 149 lb 1.6 oz I&O - Last 24 Hours: Intake & Output 01/07/17 01/08/17 01/08/17 19:59 03:59 11:59 Intake Total 1460 1959 Output Total 690 Balance 770 1959 Imaging Impressions - Last 24 Hours: Abdominal films from today reviewed. He still has prominent dilated small bowel , but this is improved from yesterday. Lab Results Last 24 Hours: Laboratory Results - last 24 hr 01/08/17 01/08/17 Range/Units 04:48 04:48 WBC 3.80 L (4.0-11.0) K/uL RBC 3.99 L (4.50-5.90) M/uL Hgb 11.8 L (13.0-17.0) g/dL Hct 37.3 L (38.0-50.0) % MCV 93.5 (80.0-98.0) fL MCH 29.6 (27.0-32.0) pg MCHC 31.6 (31.0-37.0) g/dL RDW Std Deviation 44.9 (28.0-62.0) fl RDW Coeff of Richard 13 (11.0-15.0) % Plt Count 197 (150-400) K/uL MPV 9.60 (7.40-12.00) fL Neut % (Auto) 52.0 (48.0-80.0) % Lymph % (Auto) 31.1 (16.0-40.0) % [place] % (Auto) 10.3 (0.0-15.0) % Eos % (Auto) 6.3 (0.0-7.0) % Baso % (Auto) 0.3 (0.0-1.5) % Neut # (Auto) 2.0 (1.4-5.7) K/uL Lymph # (Auto) 1.2 (0.6-2.4) K/uL [place] # (Auto) 0.4 (0.0-0.8) K/uL Eos # (Auto) 0.2 (0.0-0.7) K/uL Baso # (Auto) 0.0 (0.0-0.1) K/uL Nucleated RBC % 0.0 /100WBC Nucleated RBCs # 0 K/uL Sodium 140 (136-146) mmol/L Potassium 3.9 (3.5-5.1) mmol/L Chloride 106 (98-110) mmol/L Carbon Dioxide 27 (21-31) mmol/L BUN 11 (6.0-23.0) mg/dL Creatinine 0.8 (0.6-1.5) mg/dL Est Cr Clr Drug Dosing 133.85 mL/min Estimated GFR (MDRD) > 60.0 ml/min Glucose 77 (60-110) mg/dL Calcium 8.3 L (8.8-10.8) mg/dL Med Orders - Current: Current Medications Hydromorphone HCl (Dilaudid) 1.5 mg IV Q2H PRN PRN Reason: Pain (severe 7-10) Last Admin: 01/08/17 08:40 Dose: 1.5 mg Ciprofloxacin/Dextrose 400 mg/ (Premix) 200 mls @ 200 mls/hr IV Q12H [facility] Last Admin: 01/08/17 06:46 Dose: 200 mls/hr Metronidazole 500 mg/ Premix 100 mls @ 100 mls/hr IV Q8H [facility] Last Admin: 01/08/17 03:54 Dose: 100 mls/hr Sodium Chloride (Normal Saline) 1,000 mls @ 125 mls/hr IV ASDIRECTED DEEPTHI Last Admin: 01/08/17 04:29 Dose: 125 mls/hr Ondansetron HCl (Zofran) 4 mg IVPUSH Q4H PRN PRN Reason: Nausea Phenol/Menthol (Chloraseptic Throat [place]) 0 ml MUCMEM Q2H PRN PRN Reason: Sore Throat Last Admin: 01/06/17 21:48 Dose: 1 spray Sodium Chloride (Saline Flush) 10 ml FLUSH ASDIRECTED PRN PRN Reason: Keep Vein Open Last Admin: 01/06/17 17:53 Dose: 10 ml Sodium Chloride (Saline Flush) 2.5 ml FLUSH ASDIRECTED PRN PRN Reason: Keep Vein Open Last Admin: 01/06/17 17:53 Dose: 2.5 ml Discontinued Medications Hydromorphone HCl (Dilaudid) 1 mg IV Q2H PRN PRN Reason: Pain (severe 7-10) Last Admin: 01/07/17 09:03 Dose: 1 mg Hydromorphone HCl (Dilaudid) 0.5 mg IVPUSH ONETIME ONE Stop: 01/07/17 08:35 Last Admin: 01/07/17 08:45 Dose: 0.5 mg Sodium Chloride (Normal Saline) 1,000 mls @ 999 mls/hr IV STAT ONE Stop: 01/06/17 17:18 Last Admin: 01/06/17 17:29 Dose: 999 mls/hr Iopamidol (Isovue Multipack-370 (76%)) 100 ml IVPUSH ONETIME STA Stop: 01/06/17 17:54 Last Admin: 01/06/17 17:54 Dose: 100 ml Morphine Sulfate (Morphine) 2 mg IV ONETIME ONE Stop: 01/06/17 17:26 Last Admin: 01/06/17 17:52 Dose: 2 mg Morphine Sulfate (Morphine) 2 mg IVPUSH Q2H PRN PRN Reason: Pain Last Admin: 01/06/17 19:50 Dose: 2 mg Ondansetron HCl (Zofran) 4 mg IVPUSH ONETIME ONE Stop: 01/06/17 16:19 Last Admin: 01/06/17 17:29 Dose: 4 mg Pantoprazole Sodium (Protonix Iv) 80 mg IVPUSH .BOLUS ONE Stop: 01/06/17 16:19 Last Admin: 01/06/17 17:28 Dose: 80 mg - Exam Quality Assessment: No: Supplemental Oxygen, Urine Catheter, Skin Breakdown General: Alert, Oriented, Cooperative, No Acute Distress HEENT: Pupils Equal, Pupils Reactive. No: Scleral Icterus Neck: Supple Lungs: Clear to Auscultation, Normal Respiratory Effort Cardiovascular: Regular Rate, Regular Rhythm. No: Tachycardia GI/Abdominal Exam: Normal Bowel Sounds, Soft, Tender (Less tender than yesterday ). No: Guarding, Rigid, Rebound (Male) Exam: No Hernia Back Exam: Normal Inspection Extremities: Normal Inspection, Normal Range of Motion, Non-Tender, No Pedal Edema. No: Eveline's Sign Skin: Warm, Dry, Intact Neurological: No New Focal Deficit Psy/Mental Status: Alert, Normal Affect, Normal Mood Consult PN Assessment/Plan (1) Chronic ulcerative colitis with intestinal obstruction SNOMED Code(s): 486410749 Code(s): K51.912 - ULCERATIVE COLITIS, UNSPECIFIED WITH INTESTINAL OBSTRUCTION Priority: High Current Visit: Yes (2) Depression with anxiety SNOMED Code(s): 923693446 Code(s): F41.8 - OTHER SPECIFIED ANXIETY DISORDERS Priority: Medium Current Visit: Yes (3) Small bowel obstruction SNOMED Code(s): 590985794 Code(s): K56.609 - UNSP INTESTNL OBST, UNSP TO PARTIAL VERSUS COMPLETE OBST Priority: High Current Visit: Yes Problem List Initiated/Reviewed/Updated: Yes Plan: Overall the patient has significantly improved from yesterday. Given the fact that he continues to pass gas and have liquid stools, I think we can discontinue his NG tube. I think he can start on clear liquids and oral analgesics. If he does well with this through the day he could be discharged tonight or in the morning. I do think he needs follow-up with gastroenterology and possibly his original operating surgeon. This was done originally in [place], [place].
[2017-01-08] MEDS: oxyCODONE 5 MG Tab PO PRN ×2 (11:14→15:24)
--- NOTE | 2017-01-08 11:39 | CR ---
EXAMINATION: Abdomen HISTORY: Small bowel obstruction COMPARISON: 01/07/2017 TECHNIQUE: AP and upright views FINDINGS: There is an NG tube noted with tip in the stomach, side port is likely within the distal es ophagus. There are a few persistent loops of bowel noted within the right abdomen with stool and gas noted within the rectum. No persistent dilated loops of small bowel identified. Clips project through out the abdomen. No free air. Lung bases are clear. IMPRESSION: 1. Persistent bowel gas noted within the colon extending to the rectum without significantly residual dilated loops of small bowel. This likely represents an improving small bowel obstruction. Correlate clinically.
--- NOTE | 2017-01-08 12:10 | PCM.DCSUM1 ---
Discharge Summary - Hospital Course Brief History: This 26 yo male with pmh of ulcerative colitis s/p total colectomy ten years ago. He has had intermittent episodes of bowel obstructions since then that have been treated conservatively. He presents with three day history of abdominal pain. CT scan of abdomen today shows high-grade small bowel obstruction with suspect transition point in the right lower quadrant. Patient reports he has been passing gas. He denies any fevers. - Discharge Data Discharge Date: 01/08/17 Discharge Disposition: Home, Self-Care 01 Condition: Good - Discharge Diagnosis/Problem(s) (1) Chronic ulcerative colitis with intestinal obstruction SNOMED Code(s): 157816566 ICD Code: K51.912 - ULCERATIVE COLITIS, UNSPECIFIED WITH INTESTINAL OBSTRUCTION Status: Acute Priority: High - Patient Summary/Data Consults: Consultations 01/06/17 18:06 Consult to Physician [CONS] Stat - Patient Instructions Diet: Full Liquid Diet Activity: As Tolerated Driving: Do Not Drive Showering/Bathing: May Shower Notify Provider of: Fever, Increased Pain, Swelling and Redness, Drainage, Nausea and/or Vomiting - Discharge Plan Prescriptions/Med Rec: Ciprofloxacin HCl [Cipro] 500 mg PO BID #24 tablet metroNIDAZOLE [Flagyl] 500 mg PO Q8H #36 tablet oxyCODONE 10 mg PO Q4H PRN #45 tablet PRN Reason: Pain Home Medications: Home Meds ALPRAZolam [Alprazolam] 1 mg PO TID PRN 01/07/17 [History] Dextroamphetamine/Amphetamine [Adderall] 01/07/17 [History] Ciprofloxacin HCl [Cipro] 500 mg PO BID #24 tablet 01/08/17 [Rx] metroNIDAZOLE [Flagyl] 500 mg PO Q8H #36 tablet 01/08/17 [Rx] oxyCODONE 10 mg PO Q4H PRN #45 tablet 01/08/17 [Rx] Patient Handouts: Oxycodone tablets or capsules, Small Bowel Obstruction, Easy- to-Read, Ulcerative Colitis, Adult, Ciprofloxacin tablets, Metronidazole tablets or capsules - Discharge Summary/Plan Comment DC Time >30 min.: No Discharge Summary/Plan Comment: Discharge Diagnoses: SBO Ulcerative colitis with hx of total colectomy 10 yrs ago Jigar was admitted for SBO. He was treated with gastric decompression with NG as well as IVFs, analgesia and anti-emetics. Dr. Ho, general surgeon was consulted due to patients complex history. Conservative therapy was suggested and low threshold for transfer due to history. He was also treated with Ciprofloxacin and Flagyl due to significant bandemia, he remained afebrile. Daily abdominal xrays obtained. Today showed improving SBO, Jigar continued during his stay to pass gas and had loose BMs. NG was removed today and trialed on CL diet. he tolerated this well and pain well controlled with Oxycodone PO. He was requesting discharge this evening. He will be discharged home with Ciprofloxacin and Flagyl for 12 more days. I will provide Oxycodone 5-10 mg po every 4-6 hours as needed for pain #45 tablets no refills. He was told for further refills he needs to see PCP. He was also urged to follow up with his GI specialist in [place], Dr. Stoll. He is from [facility] and reports he will arrange these appointments himself. He is to remain on [place] diet for next 3-4 days and slowly advance to regular. He verbally agrees with this and to return to ED or clinic if concerns were to arise. - General Info Date of Service: 01/08/17 Admission Dx/Problem (Free Text: Admission Diagnosis/Problem Admission Diagnosis/Problem Small bowel obstruction Subjective Update: Improving today. Feels less bloated and pain is improving as well. Continues to pass gas and had BM last evening. No SOB or chest pain - Review of Systems General: Reports: No Symptoms. Denies: Fever Cardiovascular: Reports: No Symptoms. Denies: Chest Pain Gastrointestinal: Reports: Abdominal Pain (improving, but continues to R quadrant), Flatus Genitourinary: Reports: No Symptoms - Patient Data Vitals - Most Recent: Last Vital Signs Temp 98.5 F 01/08/17 08:00 Pulse 68 01/08/17 08:00 Resp 18 01/08/17 08:00 BP 122/81 01/08/17 08:00 Pulse Ox 95 01/08/17 08:00 Weight - Most Recent: 67.631 kg I&O - Last 24 hours: Intake & Output 01/07/17 01/08/17 01/08/17 22:59 06:59 14:59 Intake Total 1460 1958 Output Total 690 Balance 770 1958 Lab Results - Last 24 hrs: Laboratory Results - last 24 hr 01/08/17 01/08/17 Range/Units 04:48 04:48 WBC 3.80 L (4.0-11.0) K/uL RBC 3.99 L (4.50-5.90) M/uL Hgb 11.8 L (13.0-17.0) g/dL Hct 37.3 L (38.0-50.0) % MCV 93.5 (80.0-98.0) fL MCH 29.6 (27.0-32.0) pg MCHC 31.6 (31.0-37.0) g/dL RDW Std Deviation 44.9 (28.0-62.0) fl RDW Coeff of Richard 13 (11.0-15.0) % Plt Count 197 (150-400) K/uL MPV 9.60 (7.40-12.00) fL Neut % (Auto) 52.0 (48.0-80.0) % Lymph % (Auto) 31.1 (16.0-40.0) % [place] % (Auto) 10.3 (0.0-15.0) % Eos % (Auto) 6.3 (0.0-7.0) % Baso % (Auto) 0.3 (0.0-1.5) % Neut # (Auto) 2.0 (1.4-5.7) K/uL Lymph # (Auto) 1.2 (0.6-2.4) K/uL [place] # (Auto) 0.4 (0.0-0.8) K/uL Eos # (Auto) 0.2 (0.0-0.7) K/uL Baso # (Auto) 0.0 (0.0-0.1) K/uL Nucleated RBC % 0.0 /100WBC Nucleated RBCs # 0 K/uL Sodium 140 (136-146) mmol/L Potassium 3.9 (3.5-5.1) mmol/L Chloride 106 (98-110) mmol/L Carbon Dioxide 27 (21-31) mmol/L BUN 11 (6.0-23.0) mg/dL Creatinine 0.8 (0.6-1.5) mg/dL Est Cr Clr Drug Dosing 133.85 mL/min Estimated GFR (MDRD) > 60.0 ml/min Glucose 77 (60-110) mg/dL Calcium 8.3 L (8.8-10.8) mg/dL Med Orders - Current: Current Medications Hydromorphone HCl (Dilaudid) 1.5 mg IV Q2H PRN PRN Reason: Pain (severe 7-10) Last Admin: 01/08/17 08:40 Dose: 1.5 mg Ciprofloxacin/Dextrose 400 mg/ (Premix) 200 mls @ 200 mls/hr IV Q12H [facility] Last Admin: 01/08/17 06:46 Dose: 200 mls/hr Metronidazole 500 mg/ Premix 100 mls @ 100 mls/hr IV Q8H [facility] Last Admin: 01/08/17 11:13 Dose: 100 mls/hr Sodium Chloride (Normal Saline) 1,000 mls @ 125 mls/hr IV ASDIRECTED [facility] Last Admin: 01/08/17 04:29 Dose: 125 mls/hr Ondansetron HCl (Zofran) 4 mg IVPUSH Q4H PRN PRN Reason: Nausea Oxycodone HCl (Oxycodone) 10 mg PO Q4H PRN PRN Reason: Pain Last Admin: 01/08/17 11:14 Dose: 10 mg Phenol/Menthol (Chloraseptic Throat [place]) 0 ml MUCMEM Q2H PRN PRN Reason: Sore Throat Last Admin: 01/06/17 21:48 Dose: 1 spray Sodium Chloride (Saline Flush) 10 ml FLUSH ASDIRECTED PRN PRN Reason: Keep Vein Open Last Admin: 01/06/17 17:53 Dose: 10 ml Sodium Chloride (Saline Flush) 2.5 ml FLUSH ASDIRECTED PRN PRN Reason: Keep Vein Open Last Admin: 01/06/17 17:53 Dose: 2.5 ml Discontinued Medications Hydromorphone HCl (Dilaudid) 1 mg IV Q2H PRN PRN Reason: Pain (severe 7-10) Last Admin: 01/07/17 09:03 Dose: 1 mg Hydromorphone HCl (Dilaudid) 0.5 mg IVPUSH ONETIME ONE Stop: 01/07/17 08:35 Last Admin: 01/07/17 08:45 Dose: 0.5 mg Sodium Chloride (Normal Saline) 1,000 mls @ 999 mls/hr IV STAT ONE Stop: 01/06/17 17:18 Last Admin: 01/06/17 17:29 Dose: 999 mls/hr Iopamidol (Isovue Multipack-370 (76%)) 100 ml IVPUSH ONETIME STA Stop: 01/06/17 17:54 Last Admin: 01/06/17 17:54 Dose: 100 ml Morphine Sulfate (Morphine) 2 mg IV ONETIME ONE Stop: 01/06/17 17:26 Last Admin: 01/06/17 17:52 Dose: 2 mg Morphine Sulfate (Morphine) 2 mg IVPUSH Q2H PRN PRN Reason: Pain Last Admin: 01/06/17 19:50 Dose: 2 mg Ondansetron HCl (Zofran) 4 mg IVPUSH ONETIME ONE Stop: 01/06/17 16:19 Last Admin: 01/06/17 17:29 Dose: 4 mg Pantoprazole Sodium (Protonix Iv) 80 mg IVPUSH .BOLUS ONE Stop: 01/06/17 16:19 Last Admin: 01/06/17 17:28 Dose: 80 mg - Exam General: Reports: Alert, Oriented, Cooperative Lungs: Reports: Clear to Auscultation, Normal Respiratory Effort Cardiovascular: Reports: Regular Rate, Regular Rhythm GI/Abdominal Exam: Normal Bowel Sounds, Soft, No Distention, Tender (R quadrant , improving.) Neurological: Reports: No New Focal Deficit Psy/Mental Status: Reports: Alert, Normal Affect, Normal Mood *Q Meaningful Use (DIS) - VTE *Q VTE Criteria *Q: - Stroke *Q Stroke Criteria *Q: - AMI *Q AMI Criteria *Q:
[2017-01-08 12:49] VITALS: BP 127/84
== END 2017-01-08 16:18 | disposition home or self-care (01) | DRG 386 ==
LOC: MW.ED 15:38 → MW.MS 18:05 → MW.ED 18:19
PROVIDERS: ADMIT Internal Medicine; ATTEND Internal Medicine
DX: K51.912 Ulcerative colitis, unspecified with intestinal obstruction (principal); F41.8 Other specified anxiety disorders; Z79.899 Other long term (current) drug therapy
CPT/HCPCS: 36415; 74000; 74000-26; 74020; 74020-26; 74177; 74177-26; 80048; 80053; 81001; 82150; 83690; 85025; 85027; 96361; 96374; 96375; 99283; 99285-25; A9270-GY; C9113; J0744; J1170; J2270; J2405; J7040; Q9967